=== PATIENT | female | born 1995 | race Caucasian/White ===

== ENCOUNTER → 2023-05-10 | Outpatient (CLI) | payer OTHER, SELFPAY ==
--- NOTE | 2023-05-06 14:30 | LES_PTH ---
PATIENT: AMBER CASTANON LOC: [facility] U#:[id number] AGE/SX: 27/F ROOM: RE05/10/[address]: MAIKEL BOLAND MD : [id number] BED: DIS: 05/10/2023 SPEC #: [id number] RECD: 05/10/23 13:06 STATUS: DOMINGA RUBINA #: [id number] JAYDON: 05/06/23 14:[address]: MAIKEL BOLAND DEPT: SURGICAL PATHOLOGY RECD BY: Keke Figueroa Tissues: Oral soft tissues, NOS Procedures: Surgery Specimen Level IV HEADER OPERATION: Excisional biopsy of left mandible tissue PRE-OP DIAGNOSIS: Left mandible growth TISSUE SUBMITTED: Left buccal tissue MICROSCOPIC DIAGNOSIS Left buccal tissue, biopsy: Consistent with dystrophic ossification. Acanthosis of squamous mucosa and mild chronic inflammation. No evidence of malignancy. See Comment. AM;am 05/11/23 COMMENT Case has been reviewed in consultation with Dr. Noriega who concurs with the above diagnosis. IDC:[id number] MICROSCOPIC DESCRIPTION Slides are reviewed. GROSS DESCRIPTION Received is one container labeled with the patient name and designated left buccal tissue. The specimen consists of one irregular piece of light ayala mucosal tissue that measures 1 x 0.5 x 0.2 cm. The specimen is inked, serially sectioned and totally submitted in one cassette. SJ: 05/10/23 TC3 CPT:31650
== END | disposition home or self-care (01) ==
LOC: LABSPEC 13:29
PROVIDERS: Referring Provider Dentist Oral and Maxillofacial Surgery; Visit Provider Dentist Oral and Maxillofacial Surgery
DX: R22.0 Localized swelling, mass and lump, head (principal)
CPT/HCPCS: 88305